=== PATIENT | female | born 1945 | race Caucasian/White ===

== ENCOUNTER 2018-06-27 23:08 | Emergency (ER) | payer SELFPAY ==
[2018-06-27 23:29] VITALS: RESP 20
[2018-06-27] MEDS ORDERED: Albuterol-Ipratrop 3 mg / 0.5 (3 ml) UD INH STA (23:46)
--- NOTE | 2018-06-27 23:59 | C.PDOC ---
History Of Present Illness 73 y/o female presents to the ED for complaints of SOB ongoing for 4-5 days, and worsening since onset. Symptoms began while patient was recently visiting [place] (of note, she is originally from [facility]). Patient states 3 days ago she almost passed out due to severe SOB, but then noticed improvement and decided not to go to the ED. Patient just flew here from [place] and symptoms became acutely worse, prompting this visit. Otherwise patient denies fever, cough, leg swelling, chest pain, calf pain, or recent surgery or prolonged immobilization. She did have a long plane flight of 8 hours from [facility], as well as another plane flight from [place] of 4 hours. Patient also complains of a sore throat. She states 4-5 weeks ago she was treated for bronchitis-like symptoms with antibiotics, and was feeling better prior to traveling to the [place] PMD: provider in [facility] Time Seen by Provider: 06/27/18 23:31 Chief Complaint (Nursing): Shortness Of Breath History Per: Patient History/Exam Limitations: no limitations Onset/Duration Of Symptoms: Days Current Symptoms Are (Timing): Worse Associated Symptoms: denies: Productive Cough, Leg/Calf Pain, Ankle/Leg Swelling Past Medical History Reviewed: Historical Data, Nursing Documentation, Vital Signs Vital Signs: Last Vital Signs Temp 98.3 F 06/27/18 23:15 Pulse 91 H 06/27/18 23:15 Resp 20 06/27/18 23:39 BP 161/100 H 06/27/18 23:15 Pulse Ox 90 L 06/27/18 23:15 - Medical History PMH: No Chronic Diseases, Bronchitis (has inhaler at home PRN) Surgical History: No Surg Hx Family History: States: Stroke, CAD, Hypertension - Social History Hx Tobacco Use: Yes (quit 6 months ago) Hx Alcohol Use: No Hx Substance Use: No Review Of Systems Except As Marked, All Systems Reviewed And Found Negative. Constitutional: Negative for: Fever, Chills Eyes: Negative for: Vision Change Cardiovascular: Negative for: Chest Pain Respiratory: Positive for: Shortness of Breath. Negative for: Cough Gastrointestinal: Negative for: Nausea, Vomiting, Diarrhea Musculoskeletal: Negative for: Leg Pain (or swelling) Neurological: Negative for: Weakness, Numbness, Dizziness Physical Exam - Physical Exam Appears: Non-toxic, In Acute Distress (in mild respiratory distress) Skin: Normal Color, Warm, Dry Head: Atraumatic, Normacephalic Eye(s): bilateral: Normal Inspection, PERRL, EOMI Oral Mucosa: Moist Throat: Normal (pharynx clear), No Erythema, No Exudate Neck: Normal ROM Chest: Symmetrical Cardiovascular: Rhythm Regular, No Murmur Respiratory: No Rales, Rhonchi (faint rhonchi in the bilateral lower lobes), Wheezing (Occasional expiratory wheezing) Gastrointestinal/Abdominal: Soft, No Tenderness, No Distention Extremity: Normal ROM, No Pedal Edema, No Calf Tenderness Pulses: Left Dorsalis Pedis: Normal, Right Dorsalis Pedis: Normal Neurological/Psych: Oriented x3 ED Course And Treatment ECG: Interpreted By Me, Viewed By Me ECG Rhythm: Sinus Rhythm Interpretation Of ECG: Normal QRS, no ST elevations or depressions Rate From EC (bpm) O2 Sat by Pulse Oximetry: 90 (RA) Pulse Ox Interpretation: Abnormal - Radiology CXR: Interpreted by Me CXR Interpretation: Yes: No Acute Disease Medical Decision Making Medical Decision Making: Impression: Dyspnea Differential diagnosis includes but is not limited to: Pneumonia, Bronchitis, Reactive airway disease, Pulmonary embolism, CHF Plan: --EKG --CMP --Pro-BNP --Troponin I --Lactic acid --CBC --PTT/PT --D dimer --UA --Chest x-ray --Flu swab --blood cultures --Duoneb nebulizer x1 --Prednisone 60 mg PO --O2 via nasal cannula --Reevaluation O2 sat improved to 97% with 4L via nasal cannula. Patient also reports improvement in symptoms with oxygen placement. Patient is refusing any blood work, states she only wants treatment for bronchitis. Discussed with patient the possibility of cardiac issue or PE, and the need for further work-up. Patient still wants just a trial of nebulizer treatments without any further work-up. 1:00am Patient reports improvement. Continues to decline further work-up, and will sign out AMA. AMA (treatment): The patient declines to have further medical evaluation and treatment and wishes to leave the Emergency Department. This action is against my medical advice to the patient, and with informed refusal. The patient was told that evaluation and treatment are necessary and a full explanation of the rationale was given. The risks of leaving were explained to the patient and include, but are not limited to, worsening of known or currently unknown conditions, permanent disability and from undiagnosed or untreated conditions The patient has the capacity to make this informed decision and understands the clinical situation and my explanation of the risks of leaving. The patient voluntarily accepts these risks, and a signed AMA form documenting our conversation was obtained. The patient was given the opportunity to ask questions and reconsider. The patient was encouraged to return to the Emergency Department at any time for further care. Disposition Counseled Patient/Family Regarding: Need For Followup - Disposition Disposition: AGAINST MEDICAL ADVICE Disposition Time: 01:00 Condition: UNKNOWN Additional Instructions: RETURN TO ER OR FOLLOW UP WITH YOUR DOCTOR IMMEDIATELY FOR FURTHER EVALUATION AND MANAGEMENT Prescriptions: RX: Albuterol HFA [Ventolin HFA 90 mcg/actuation (8 g)] 2 puff IH Q4H PRN #1 inh PRN Reason: ASTHMA RX: Prednisone 50 mg PO DAILY #4 tablet Instructions: Asthma, Adult (DC), Leaving Against Medical Advice Forms: (AMA) Informed Refusal - Clinical Impression Clinical Impression: Bronchitis, Reactive airway disease, Hypoxia - Scribe Statement The provider has reviewed the documentation as recorded by the Leon Velazquez Provider Attestation: All medical record entries made by the Leon were at my direction and personally dictated by me. I have reviewed the chart and agree that the record accurately reflects my personal performance of the history, physical exam, medical decision making, and the department course for this patient. I have also personally directed, reviewed, and agree with the discharge instructions and disposition.
[2018-06-28] MEDS ORDERED: Albuterol-Ipratrop 3 mg / 0.5 (3 ml) UD ONE
[2018-06-28 01:38] VITALS: BP 155/69; PULSE 81; TEMP 97.6
--- NOTE | 2018-06-28 09:31 | RAD ---
Date of service: 06/28/2018 HISTORY: SOB COMPARISON: No prior. TECHNIQUE: Chest PA and lateral FINDINGS: LUNGS: There appears to be mild hyperinflation with slight increased and coarsened interstitial markings; rule out COPD or emphysema. PLEURA: No significant pleural effusion identified. No pneumothorax apparent. CARDIOVASCULAR: Minor aortic atherosclerotic calcification present. Normal cardiac size. No pulmonary vascular congestion. OSSEOUS STRUCTURES: Mild multilevel degenerative spondylosis of the the thoracic spine VISUALIZED UPPER ABDOMEN: Normal. OTHER FINDINGS: None. IMPRESSION: Mild hyperinflation with slight increased and coarsened interstitial markings; rule out COPD or emphysema.
--- NOTE | 2018-06-28 11:36 | CARD ---
APPROVED REPORT Date of service: 06/27/2018 EKG Measurement Heart [id number] <Conclusion> Normal sinus rhythm Normal ECG
[2018-06-28 16:12] VITALS: O2SAT 90
== END 2018-06-28 01:30 | disposition left against medical advice (07) ==
LOC: C.ER 23:08
DX: J45.909 Unspecified asthma, uncomplicated (principal); R09.02 Hypoxemia; Z87.891 Personal history of nicotine dependence